=== PATIENT | female | born 1960 | race Caucasian/White ===

== ENCOUNTER 2022-02-18 10:10 | Emergency (ER) | payer OTHER, SELFPAY ==
[2022-02-18 10:22] VITALS: BP 126/76; RESP 24; TEMP 37; O2SAT 95; BMI 27.1
[2022-02-18 11:11] LABS: Hemoglobin* 10.7 gm/dL (12.0-16.0); Immature Granulocytes Abs Auto 0.03 K/uL (0.00-0.30); Lymphocytes Percent Auto 3.3 % (20-44); Mean Corpuscular HGB Conc 32 gm/dL (32-36); Mean Corpuscular Hemoglobin 28 pg (26-34); Mean Corpuscular Volume 89 fL (80-100); Monocytes Percent Auto 3.3 % (0.0-11.0); Neutrophils Percent Auto 93.2 % (42.0-72.0); Platelet Count* 249 K/uL (140-440); RDW Coefficient of Variation % 14.6 % (11.5-15.5); Red Blood Count 3.82 m/uL (4.00-5.20); White Blood Count* 12.87 K/uL (4.50-11.00)
[2022-02-18 11:17] LABS: Slide Review Reflex No
--- NOTE | 2022-02-18 11:17 | CRLHL7_ITS ---
For Patients: As a result of the Cures Act, medical imaging exams and procedure reports are released immediately into your electronic medical record. You may view this report before your referring provider. If you have questions, please contact your health care provider. INDICATION: Question pneumonia right lower lobe. TECHNIQUE: Chest 1 view. COMPARISON: None. FINDINGS: There are patchy nodular opacities throughout the right mid to lower lung and left lung base which are likely infectious or inflammatory. Linear atelectasis in the mid lungs. No pleural effusion or pneumothorax. Normal heart size and pulmonary vascularity. Cervical spine hardware. IMPRESSION: Patchy nodular opacities in the right greater than left lungs are likely infectious or inflammatory. Dictated by Sadie Stark MD @ 02/18/2022 12:49:50 PM (Electronically Signed)
--- NOTE | 2022-02-18 11:20 | ED_ITS ---
HPI - General Adult General Time Seen by Provider: 11:20 Date Seen: 02/18/22 Chief complaint: Shortness of Breath/Dyspnea Stated complaint: Shortness of breath, fever Time Seen by Provider: 02/18/22 10:36 Source: patient Mode of arrival: ambulatory Limitations: no limitations History of Present Illness HPI narrative: Shelby is a 61-year-old female past medical history includes hiatal hernia presents emerged department via private car with a shortness of breath and cough. Patient states that since Wednesday she has had ongoing productive cough, chills, myalgias and fevers, patient recently got her flu vaccine, she has had her COVID vaccine as well as this years booster, she denies any sick contacts. Cough is productive Contin whitish tinge, she has no cardiac or stroke history,, she has had associated nausea but no vomiting, she was going to go to work today but felt on well so she came to the emergency department. Patient states she had a fever 102 last night, associated chills, she denies any chest pain or abdominal pain, she does have right lower back pain from coughing, she denies any diarrhea or urinary complaints. Patient has a history of pneumonia in the past, providers felt that due to her hiatal hernia she may be aspirating causing her symptoms. Patient also has a headache, from coughing, she took Excedrin as well as 600 mg Motrin prior to arrival. No other concerns at this time. Related Data Previous Rx's Medication Instructions Recorded amoxicillin 875 mg-potassium 1 tab PO BID #10 tabs 02/18/22 clavulanate 125 mg tablet benzonatate 100 mg capsule 100 mg PO TID 5 days #15 caps 02/18/22 Allergies Allergy/AdvReac Type Severity Reaction Status Date / Time Sulfa (Sulfonamide Allergy Verified 02/18/22 10:20 Antibiotics) Review of Systems Status of ROS: Reports: 10 or more systems reviewed and unremarkable except as noted in History and below PFS PFS Social History Smoking Status: Never smoker Do you use any of these nicotine containing products: None Second hand tobacco smoke exposure: No How often do you have a drink containing alcohol: monthly or less How many standard drinks containing alcohol do you have on a typical day: 1 or 2 How often do you have six or more drinks on one occasion: Never AUDIT-C Alcohol total score: 1 Non-prescribed substance use: denies use service: No Exam Narrative: Exam Narrative: General: No obvious distress sitting comfortably, nontoxic in appearance HEENT: Oropharynx is clear and moist, tympanic membranes within normal limits bilaterally, extraocular muscles intact, pupils equal round reactive to light Neck: Supple full range of motion Lungs: Clear to auscultation bilaterally Heart: Normal sinus rhythm S1-S2 Abdomen: Soft nontender, bowel sounds present Muscle skeletal: +5 strength upper lower extremities, no lower extremity edema Neuro: Alert awake and oriented x3 Const: Vital Signs, click to edit/add: Vital Signs - 24 hr 02/18/22 10:22 02/18/22 12:09 Temperature 98.6 F Respiratory Rate 24 14 Blood Pressure [Ri ght Upper Arm] 126/76 112/66 Pulse Oximetry 95 95 Oxygen Delivery Me thod Room Air Room Air Course Course Hospital Course: 11:00 AM: AIDET performed. Workup will include, CBC, CRP, CMP, will obtain a XR chest two views, for her cough Tessalon Perles 200 mg, Robitussin 10 mL and a albuterol inhaler 1-2 puffs, her vitals are stable, plan to rule out bronchitis versus pneumonia. Reevaluation(s) Reevaluation #1: Patient was updated on her lab and imaging results, CBC did show a leukocytosis 12.87 with a left shift, CRP mildly elevated 1.8, imaging showed Patchy nodular opacities in the right greater than left lungs are likely infectious or inflammatory. Vitals have been stable, she is feeling better after above care given, plan would be to treat as an outpatient, patient responded well to Augmentin in the past. Will likely discharge with Augmentin twice daily over the next 10 days, she will be discharged with the albuterol inhaler, and prescription for Tessalon Perles 100 mg t.i.d. over the next 5 days. Work note was given over the next few days, she needs to follow up with a primary care provider over the next 7-10 days or return if worsening symptoms. Time: 13:13 Vital Signs Vital signs: Initial Vital Signs Temperature 98.6 F 02/18/22 10:22 Temperature Source Temporal Artery Scan 02/18/22 10:22 Respiratory Rate 24 02/18/22 10:22 Blood Pressure 126/76 02/18/22 10:22 Blood Pressure Mean 92 02/18/22 10:22 Blood Pressure Position Supine 02/18/22 10:22 Pulse Oximetry 95 02/18/22 10:22 Oxygen Delivery Method 02/18/22 10:22 Vital Signs Temperature 98.6 F 02/18/22 10:22 Respiratory Rate 24 02/18/22 10:22 Blood Pressure 126/76 02/18/22 10:22 Pulse Oximetry 95 02/18/22 10:22 Oxygen Delivery Method 02/18/22 10:22 Temperature 98.6 F 02/18/22 10:22 Respiratory Rate 14 02/18/22 12:09 Blood Pressure 112/66 02/18/22 12:09 Pulse Oximetry 95 02/18/22 12:09 Oxygen Delivery Method 02/18/22 12:09 Medical Decision Making Lab Data Labs: Lab Results 02/18/22 02/18/22 02/18/22 Range/Units 10:30 11:05 11:05 WBC 12.87 H (4.50-11.00) K/uL RBC 3.82 L (4.00-5.20) m/uL Hgb 10.7 L (12.0-16.0) gm/dL Hct 34.0 (33.0-51.0) % MCV 89 (80-100) fL MCH 28 (26-34) pg MCHC 32 (32-36) gm/dL RDW Coeff of Dominik 14.6 (11.5-15.5) % Plt Count 249 (140-440) K/uL Neut % (Auto) 93.2 H (42.0-72.0) % Lymph % (Auto) 3.3 L (20-44) % Meriwether % (Auto) 3.3 (0.0-11.0) % Eos % (Auto) 0.0 (0.0-7.0) % Baso % (Auto) 0.0 (0.0-3.0) % Neut # (Auto) 12.00 H (1.7-7.0) K/uL Lymph # (Auto) 0.40 L (0.90-2.90) K/uL Meriwether # (Auto) 0.40 (0.00-0.90) K/UL Eos # (Auto) 0.00 (0.00-0.50) K/uL Baso # (Auto) 0.00 (0.00-0.30) K/uL Abs Immat Gran (auto) 0.03 (0.00-0.30) K/uL Sodium 137 (135-149) mmol/L Potassium 3.6 (3.6-5.1) mmol/L Chloride 106 (96-114) mmol/L Carbon Dioxide 22 (20-32) mmol/L BUN 17 (7-30) mg/dL Creatinine 0.7 (0.5-1.5) mg/dL Estimated Creat Clear 55.31 Estimated GFR 98 ml/min Glucose 128 H (60-115) mg/dL Calcium 8.8 (8.4-10.6) mg/dL Total Bilirubin 0.4 (0.1-1.5) mg/dL AST 30 (12-35) U/L ALT 22 (4-35) U/L Alkaline Phosphatase 88 (40-150) U/L C-Reactive Protein 1.8 H (0.5-1.0) mg/dL Total Protein 7.1 (6.0-8.3) g/dL Albumin 3.8 (3.3-5.0) g/dL SARS-CoV-2 (PCR) Negative SARS-CoV-2 (Negative) Influenza Type A (PCR) Negative PCR FLU A (Negative) Influenza Type B (PCR) Negative PCR FLU B (Negative) RSV (PCR) Negative PCR RSV (Negative) Discharge Plan Discharge Clinical Impression: Pneumonia involving right lung Patient Disposition: Home, Self-Care Condition: Improved Instructions: Community Acquired Pneumonia (ED) Additional Instructions: Albuterol inhaler 1-2 puffs every 4-6 hours as needed for cough and shortness of breath, Tessalon Perles 100 mg 3 times daily over the next 5 days, Augmentin 875/125 mg twice daily over the next 10 days. To follow-up with primary care provider over the next 7-10 days. Activity Level: Activity as Tolerated Discharge Diet: Regular Prescriptions: New benzonatate 100 mg capsule 100 mg PO TID 5 Days Qty: 15 0RF amoxicillin-pot clavulanate 875-125 mg tablet 1 tab PO BID Qty: 10 0RF Stand Alone Forms: MyHealth Info Instructions
[2022-02-18 11:30] LABS: Albumin* 3.8 g/dL (3.3-5.0); Chloride* 106 mmol/L (96-114); Sodium* 137 mmol/L (135-149)
[2022-02-18 11:31] LABS: Potassium* 3.6 mmol/L (3.6-5.1)
[2022-02-18 11:33] LABS: Bilirubin Total* 0.4 mg/dL (0.1-1.5); Creatinine* 0.7 mg/dL (0.5-1.5); Est. Creatinine Clearance* 55.31; Estimated Glomerular Filt Rate 98 ml/min
[2022-02-18 11:34] LABS: Alanine Aminotransferase* 22 U/L (4-35); Alkaline Phosphatase* 88 U/L (40-150); Aspartate Amino Transferase* 30 U/L (12-35); Blood Urea Nitrogen* 17 mg/dL (7-30); Calcium* 8.8 mg/dL (8.4-10.6); Carbon Dioxide* 22 mmol/L (20-32); Glucose* 128 mg/dL (60-115); Total Protein* 7.1 g/dL (6.0-8.3)
[2022-02-18 11:36] LABS: PCR FLU A Negative PCR FLU A (Negative); PCR FLU B Negative PCR FLU B (Negative); PCR RSV Negative PCR RSV (Negative)
[2022-02-18 11:37] LABS: C Reactive Protein* 1.8 mg/dL (0.5-1.0)
[2022-02-18 12:06] LABS: SARS PCR* Negative SARS-CoV-2 (Negative)
[2022-02-18] MEDS: guaiFENesin 100 MG/ML CUP PO (12:06)
[2022-02-18] MEDS: BENZONATATE 100 MG CAPSULE 200 MG PO (12:06)
[2022-02-18] MEDS: ALBUTEROL INHALER 2 PUFF IH (12:06)
[2022-02-18 12:09] VITALS: BP 112/66; RESP 14; O2SAT 95
--- OUTSIDE RECORDS SUMMARY | 2022-02-18 12:39 | XMS_ITS | Clinical Summary ---
:1960 Author Organization [facility] [place] [address] Care Team Providers Name Role Phone Unavailable Primary Care Provider Unavailable Allergies Active Allergy Reactions Severity Noted Date Comments Sulfa (Sulfonamide Antibiotics) Hives Medications Not on file Active Problems Not on file Social History Tobacco Use Types Packs/Day Years Used Date Never Assessed Sex Assigned at Date Recorded Not on file Plan of Treatment Health Maintenance Due Date Last Done Comments COVID-19 vaccine series (#1) 1960 Tdap 1971 Depression screening for age 12+ 1972 BMI (ht and wt on same day) for age 18+ 1978 Hepatitis C screening for age 18-79 1978 Tetanus booster 1980 Pap test for age 21-65 1981 Colonoscopy through age 75 2005 Lipids for age 45-75 2005 Mammogram for age 45-75 2005 Zoster (shingles) series for age 50+ (1 of 2) 2010 Influenza for age 50-64 01/15/2022 Results Not on filefrom Last 3 Months Insurance Payer Benefit Plan / Subscriber ID Effective Dates Phone Addre ss Type Group PREFERRED ONE [employer] [id number] 2021-[id number] [place] [address]
[2022-02-18] MEDS: AMOXICILLIN/CLAVULANATE 875 mg/125 mg TABLET PO (13:34)
--- NOTE | 2022-02-18 18:13 | ED.NURSE ---
5 day supply of augmentin called to pharmacy. Pt dc with only [address] Bailey patient needs 10 days worth.
== END 2022-02-18 13:35 | disposition home or self-care (01) ==
PROVIDERS: Emergency Provider Student in an Organized Health Care Education/Training Program
DX: J18.9 Pneumonia, unspecified organism (principal)
CPT/HCPCS: 36415; 71045; 80053; 85025; 86140; 87502; 87631; 87634; 87635; 99283; 99284; A9270